=== PATIENT | male | born 1975 | race Caucasian/White ===

== ENCOUNTER 2016-12-09 01:16 | Emergency (ER) | payer MEDICAID ==
[~2016-12-09] VITALS: Ht 177.8 cm; Wt 173.0 kg
[~2016-12-09 01:16] MED LIST: AMLO-512 PO; SULF-168 PO
[2016-12-09 02:17] LABS: BASOPHILS # (AUTO) 0.05 K/uL (0.00-0.20); BASOPHILS % (AUTO) 0.3 % (0.0-2.0); EOSINOPHILS % (AUTO) 1.47 % (1.0-6.0); HEMATOCRIT 41.4 % (41-53); HEMOGLOBIN 13.5 g/dL (13.5-17.5); LYMPHOCYTES # (AUTO) 1.5 K/uL (1.0-4.8); MEAN CORPUSCULAR HEMOGLOBIN 27.5 pg (26.0-34.0); MEAN CORPUSCULAR HGB CONC 32.5 G/dL (31.0-37.0); MEAN CORPUSCULAR VOLUME 85 fL (80-100); MONOCYTES # (AUTO) 0.8 K/uL (0.1-1.0); MONOCYTES % (AUTO) 5.7 % (2.0-9.0); NEUTROPHILS # (AUTO) 11.1 K/uL (1.8-7.7); NEUTROPHILS % (AUTO) 81.5 % (40.0-70.0); PLATELET COUNT (AUTO) 425 K/uL (150-450); RED CELL DISTRIBUTION WIDTH 14.7 % (11.5-14.5); WHITE BLOOD COUNT (AUTO) 13.6 K/uL (4.5-11.0)
[2016-12-09 02:28] LABS: CALCIUM, TOTAL 8.4 mg/dL (8.8-10.5); CREATININE 1.43 mg/dL (0.60-1.30); POTASSIUM 3.9 mmol/L (3.5-5.1)
[2016-12-09 02:34] LABS: ALBUMIN 2.6 g/dL (3.4-5.0); BILIRUBIN,TOTAL 0.3 mg/dL (0.1-1.0)
[2016-12-09] MEDS ORDERED: HYDROmorphone 2 MG/ML SYRINGE IVP ONE (02:45)
[2016-12-09] MEDS ORDERED: ONDANSETRON HCL 4 MG/2 ML VIAL IVP ONE (02:45)
[2016-12-09] MEDS ORDERED: CEFTAROLINE 600 MG/D5W 250 ML IV ONE (02:45)
[2016-12-09] MEDS ORDERED: FUROSEMIDE 20 MG/2 ML VIAL IVP ONE (03:15)
[2016-12-09] MEDS ORDERED: FUROSEMIDE 40 MG/4 ML VIAL IVP ONE (03:15)
[2016-12-09 04:12] VITALS: BP 139/70
== END 2016-12-09 04:23 | disposition home or self-care (01) ==
LOC: EMS 01:17
DX: L03.114 Cellulitis of left upper limb (principal); R60.0 Localized edema; F17.210 Nicotine dependence, cigarettes, uncomplicated
CPT/HCPCS: 36415; 73130; 80053; 85025; 87040; 96365; 96375; 99285; 99406; J0712; J1170; J1940; J2405

== ENCOUNTER 2017-01-04 20:25 | Inpatient (IN) | payer MEDICAID ==
[~2017-01-04] VITALS: Ht 177.8 cm; Wt 187.1 kg
[~2017-01-04 20:25] MED LIST changes: -SULF-168 PO
[2017-01-04 21:16] LABS: BASOPHILS % (AUTO) 0.3 % (0.0-2.0); EOSINOPHILS % (AUTO) 2.4 % (1.0-6.0); HEMATOCRIT 40.6 % (41-53); LYMPHOCYTES # (AUTO) 1.2 K/uL (1.0-4.8); LYMPHOCYTES % (AUTO) 11.3 % (22.0-44.0); MEAN CORPUSCULAR VOLUME 84 fL (80-100); MONOCYTES # (AUTO) 0.9 K/uL (0.1-1.0); MONOCYTES % (AUTO) 8.5 % (2.0-9.0); NEUTROPHILS # (AUTO) 8.4 K/uL (1.8-7.7); NEUTROPHILS % (AUTO) 77.5 % (40.0-70.0); PLATELET COUNT (AUTO) 364 K/uL (150-450); RED BLOOD CELL COUNT(AUTO) 4.81 MIL/uL (4.50-5.90); RED CELL DISTRIBUTION WIDTH 15.4 % (11.5-14.5); WHITE BLOOD COUNT (AUTO) 10.9 K/uL (4.5-11.0)
[2017-01-04 21:29] LABS: ANION GAP 5 mmol/L (8-16); CALCIUM, TOTAL 7.8 mg/dL (8.8-10.5); CARBON DIOXIDE 32 mmol/L (22-29); CHLORIDE 99 mmol/L (98-107); GLOMERULAR FILTR. RATE CALC > 60 mL/min (>60); INR 1.1 (0.9-1.1); POTASSIUM 4.1 mmol/L (3.5-5.1); PROTHROMBIN TIME 11.4 SEC (9.4-11.6); SODIUM SERUM 136 mmol/L (136-145); UREA NITROGEN, BLOOD 13 mg/dL (7-18)
[2017-01-04 21:45] LABS: B-TYPE NATRIURETIC PEPTIDE 21 pg/mL (0-100)
[2017-01-04 21:58] LABS: ALANINE AMINOTRANSFERASE 20 U/L (12-78); ALBUMIN 2.5 g/dL (3.4-5.0); ASPARTATE AMINOTRANSFERASE 19 U/L (15-37); BILIRUBIN,TOTAL 0.3 mg/dL (0.1-1.0); CREATINE KINASE MB 2.2 ng/mL (0-5); CREATINE KINASE, TOTAL 169 U/L (39-308); TOTAL PROTEIN, SERUM 9.3 g/dL (6.4-8.2)
[2017-01-04] MEDS ORDERED: CEFTAROLINE 600 MG/D5W 250 ML IV ONE (22:15)
[2017-01-04] MEDS ORDERED: FUROSEMIDE 40 MG/4 ML VIAL IVP ONE (22:15)
[2017-01-04] MEDS ORDERED: ONDANSETRON HCL 4 MG/2 ML VIAL IVP ONE (22:15)
[2017-01-04] MEDS ORDERED: HYDROmorphone 2 MG/ML SYRINGE IVP ONE (22:15)
[2017-01-04] MEDS ORDERED: 0.9% SODIUM CHLORIDE 10 ML SYRINGE IVP PRN (22:45)
[2017-01-04] MEDS ORDERED: ACETAMINOPHEN 325 MG TABLET PO PRN ×2 (22:45→23:30)
[2017-01-04] MEDS ORDERED: ONDANSETRON HCL 4 MG/2 ML VIAL IVP PRN ×2 (22:45→23:30)
[2017-01-04] MEDS ORDERED: HYDROmorphone 2 MG/ML SYRINGE IVP PRN (23:30)
[2017-01-04] MEDS ORDERED: ALBUTEROL SULFATE 2.5 MG/0.5 ML NEB SOLUTION NEB PRN (23:30)
[2017-01-04] MEDS ORDERED: ZOLPIDEM TARTRATE 5 MG TABLET PO PRN (23:30)
[2017-01-04] MEDS ORDERED: OxyCODONE HCL/ACETAMINOPHEN 5-325 MG TABLET PO PRN (23:30)
[2017-01-04] MEDS ORDERED: MAGNESIUM HYDROXIDE SUSPENSION 30 ML UDCUP PO PRN (23:30)
[2017-01-04] MEDS ORDERED: BISACODYL 10 MG RECTAL RECTAL SUPPOSITORY PR PRN (23:30)
[2017-01-04] MEDS ORDERED: IPRATROPIUM BROMIDE 0.5 MG/2.5 ML NEB SOLUTION NEB PRN (23:30)
[2017-01-05] VITALS (8 sets, daily range): BP systolic 123–182; BP diastolic 63–101
[2017-01-05] MEDS ORDERED: CloNIDine HCL 0.1 MG TABLET PO PRN (05:30)
[2017-01-05 06:07] LABS: BASOPHILS % (AUTO) 0.4 % (0.0-2.0); EOSINOPHILS % (AUTO) 3.3 % (1.0-6.0); HEMATOCRIT 38.8 % (41-53); HEMOGLOBIN 12.5 g/dL (13.5-17.5); LYMPHOCYTES # (AUTO) 1.3 K/uL (1.0-4.8); LYMPHOCYTES % (AUTO) 11.9 % (22.0-44.0); MEAN CORPUSCULAR HEMOGLOBIN 26.9 pg (26.0-34.0); MEAN CORPUSCULAR HGB CONC 32.1 G/dL (31.0-37.0); MEAN CORPUSCULAR VOLUME 84 fL (80-100); MONOCYTES # (AUTO) 1.2 K/uL (0.1-1.0); MONOCYTES % (AUTO) 10.4 % (2.0-9.0); NEUTROPHILS # (AUTO) 8.3 K/uL (1.8-7.7); PLATELET COUNT (AUTO) 349 K/uL (150-450); RED BLOOD CELL COUNT(AUTO) 4.63 MIL/uL (4.50-5.90); WHITE BLOOD COUNT (AUTO) 11.2 K/uL (4.5-11.0)
[2017-01-05 07:26] LABS: ALANINE AMINOTRANSFERASE 18 U/L (12-78); ALBUMIN 2.4 g/dL (3.4-5.0); ANION GAP 6 mmol/L (8-16); ASPARTATE AMINOTRANSFERASE 18 U/L (15-37); BILIRUBIN,TOTAL 0.4 mg/dL (0.1-1.0); CALCIUM, TOTAL 7.7 mg/dL (8.8-10.5); CARBON DIOXIDE 31 mmol/L (22-29); CHLORIDE 99 mmol/L (98-107); CREATININE 1.11 mg/dL (0.60-1.30); GLOMERULAR FILTR. RATE CALC > 60 mL/min (>60); PHOSPHORUS 4.8 mg/dL (2.5-4.9); POTASSIUM 3.7 mmol/L (3.5-5.1); SODIUM SERUM 136 mmol/L (136-145); TOTAL PROTEIN, SERUM 8.6 g/dL (6.4-8.2); UREA NITROGEN, BLOOD 12 mg/dL (7-18)
[2017-01-05] MEDS: AmLODIPine BESYLATE 10 MG TABLET PO SCH (08:55)
[2017-01-05] MEDS: HEPARIN SODIUM,PORCINE 5,000 UNITS/ML VIAL SQ SCH (08:55)
[2017-01-05] MEDS: PANTOPRAZOLE SODIUM 40 MG DR TABLET PO SCH (08:55)
[2017-01-05] MEDS ORDERED: FUROSEMIDE 40 MG/4 ML VIAL IVP SCH (09:00)
[2017-01-05] MEDS ORDERED: CEFTAROLINE 600 MG/D5W 250 ML IV SCH (11:00)
[2017-01-05] MEDS ORDERED: SODIUM CHLORIDE 0.9% 500 ML IV ONE (11:24)
[2017-01-05 14:03] LABS: APPEARANCE,URINE CLEAR (CLEAR); GLUCOSE, URINE (UA) NEGATIVE (NEGATIVE); KETONES,URINE NEGATIVE (NEGATIVE); LEUKOCYTE ESTERASE ,URINE NEGATIVE (NEGATIVE); OCCULT BLOOD,URINE LARGE (NEGATIVE); PH,URINE 5.5 (5.0-8.0); PROTEIN,URINE NEGATIVE (NEGATIVE)
[2017-01-05 14:04] LABS: ADD UA MICROSCOPIC YES
[2017-01-05 14:11] LABS: WBC,URINE 0-2 /HPF (0-5)
[2017-01-05] MEDS: VANCOMYCIN HCL 1 GM/D5% WATER 200 ML IV SCH ×2 (16:00→16:58)
[2017-01-06] MEDS: VANCOMYCIN HCL 1.5 GM in DEXTROSE 5%-WATER 250 ML IV SCH ×4 (00:43→23:46)
[2017-01-06] MEDS: HEPARIN SODIUM,PORCINE 5,000 UNITS/ML VIAL SQ SCH ×3 (00:46→20:19)
[2017-01-06 06:07] VITALS: BP 133/60
[2017-01-06 06:15] LABS: BASOPHILS % (AUTO) 0.2 % (0.0-2.0); EOSINOPHILS % (AUTO) 2.1 % (1.0-6.0); HEMATOCRIT 40.1 % (41-53); HEMOGLOBIN 12.9 g/dL (13.5-17.5); LYMPHOCYTES # (AUTO) 1.1 K/uL (1.0-4.8); LYMPHOCYTES % (AUTO) 10.3 % (22.0-44.0); MEAN CORPUSCULAR HEMOGLOBIN 27.2 pg (26.0-34.0); MEAN CORPUSCULAR HGB CONC 32.3 G/dL (31.0-37.0); MEAN CORPUSCULAR VOLUME 84 fL (80-100); MONOCYTES # (AUTO) 1.1 K/uL (0.1-1.0); MONOCYTES % (AUTO) 9.8 % (2.0-9.0); NEUTROPHILS # (AUTO) 8.4 K/uL (1.8-7.7); NEUTROPHILS % (AUTO) 77.6 % (40.0-70.0); PLATELET COUNT (AUTO) 401 K/uL (150-450); RED BLOOD CELL COUNT(AUTO) 4.75 MIL/uL (4.50-5.90); RED CELL DISTRIBUTION WIDTH 15.1 % (11.5-14.5); WHITE BLOOD COUNT (AUTO) 10.9 K/uL (4.5-11.0)
[2017-01-06 06:34] LABS: ANION GAP 5 mmol/L (8-16); CALCIUM, TOTAL 8.1 mg/dL (8.8-10.5); CARBON DIOXIDE 32 mmol/L (22-29); CHLORIDE 101 mmol/L (98-107); CREATININE 1.14 mg/dL (0.60-1.30); GLOMERULAR FILTR. RATE CALC > 60 mL/min (>60); POTASSIUM 3.9 mmol/L (3.5-5.1); SODIUM SERUM 138 mmol/L (136-145); UREA NITROGEN, BLOOD 11 mg/dL (7-18)
[2017-01-06] MEDS: PANTOPRAZOLE SODIUM 40 MG DR TABLET PO SCH (08:17)
[2017-01-06] MEDS: AmLODIPine BESYLATE 10 MG TABLET PO SCH (08:18)
[2017-01-06 08:23] VITALS: BP 116/68
[2017-01-06 11:45] VITALS: BP 131/69
[2017-01-06 15:45] VITALS: BP 135/88
[2017-01-06 19:31] VITALS: BP 131/77
[2017-01-07] VITALS (7 sets, daily range): BP systolic 111–138; BP diastolic 52–81
[2017-01-07 06:28] LABS: ANION GAP 5 mmol/L (8-16); CALCIUM, TOTAL 8.1 mg/dL (8.8-10.5); CARBON DIOXIDE 33 mmol/L (22-29); CHLORIDE 99 mmol/L (98-107); CREATININE 1.15 mg/dL (0.60-1.30); GLOMERULAR FILTR. RATE CALC > 60 mL/min (>60); POTASSIUM 4.1 mmol/L (3.5-5.1); SODIUM SERUM 137 mmol/L (136-145); UREA NITROGEN, BLOOD 13 mg/dL (7-18)
[2017-01-07] MEDS: HEPARIN SODIUM,PORCINE 5,000 UNITS/ML VIAL SQ SCH ×2 (09:00→20:00)
[2017-01-07] MEDS: PANTOPRAZOLE SODIUM 40 MG DR TABLET PO SCH (09:35)
[2017-01-07] MEDS: AmLODIPine BESYLATE 10 MG TABLET PO SCH (09:35)
[2017-01-07] MEDS: VANCOMYCIN HCL 1.5 GM in DEXTROSE 5%-WATER 250 ML IV SCH ×3 (09:35→23:05)
[2017-01-08 04:43] VITALS: BP 124/63
[2017-01-08 06:07] LABS: ANION GAP 5 mmol/L (8-16); CALCIUM, TOTAL 7.9 mg/dL (8.8-10.5); CARBON DIOXIDE 33 mmol/L (22-29); CHLORIDE 98 mmol/L (98-107); CREATININE 1.16 mg/dL (0.60-1.30); GLOMERULAR FILTR. RATE CALC > 60 mL/min (>60); POTASSIUM 4.1 mmol/L (3.5-5.1); SODIUM SERUM 136 mmol/L (136-145); UREA NITROGEN, BLOOD 13 mg/dL (7-18)
[2017-01-08 07:25] VITALS: BP 144/125
[2017-01-08] MEDS: HEPARIN SODIUM,PORCINE 5,000 UNITS/ML VIAL SQ SCH (09:24)
[2017-01-08] MEDS: PANTOPRAZOLE SODIUM 40 MG DR TABLET PO SCH (09:24)
[2017-01-08] MEDS: AmLODIPine BESYLATE 10 MG TABLET PO SCH (09:24)
[2017-01-08] MEDS: VANCOMYCIN HCL 1.5 GM in DEXTROSE 5%-WATER 250 ML IV SCH ×2 (09:25→15:06)
[2017-01-08 11:25] VITALS: BP 134/83
[2017-01-08 15:51] VITALS: BP 129/80
[2017-01-08] MEDS ORDERED: DOXY100C PO (17:02)
== END 2017-01-08 17:50 | disposition home or self-care (01) | DRG 383 ==
LOC: EMS 20:29 → 6N 23:28
PROVIDERS: ADMIT Internal Medicine; ATTEND Internal Medicine
DX: L03.114 Cellulitis of left upper limb (principal); E44.0 Moderate protein-calorie malnutrition; L03.115 Cellulitis of right lower limb; Z68.43 Body mass index [BMI] 50.0-59.9, adult; E66.01 Morbid (severe) obesity due to excess calories; L03.116 Cellulitis of left lower limb; I10 Essential (primary) hypertension; J44.9 Chronic obstructive pulmonary disease, unspecified; G47.33 Obstructive sleep apnea (adult) (pediatric); M10.9 Gout, unspecified; M19.90 Unspecified osteoarthritis, unspecified site; F17.210 Nicotine dependence, cigarettes, uncomplicated; K59.00 Constipation, unspecified; G47.00 Insomnia, unspecified; Z79.899 Other long term (current) drug therapy; Z71.6 Tobacco abuse counseling
CPT/HCPCS: 83735; 84100; 87040; 87081; 93005; 93971; 94660; 96365; 96366; 96375; 99285; J0712; J1170; J1644; J1940; J2405; J3370; J7040; J7060

== ENCOUNTER 2018-12-31 19:12 | Emergency (ER) | payer MEDICAID, OTHER ==
[~2018-12-31] VITALS: Ht 177.8 cm; Wt 167.7 kg
[~2018-12-31 19:12] MED LIST changes: -AMLO-512 PO; +ASPI-1182 PO; +MULT-264 PO
[2018-12-31 19:48] LABS: GLUCOSE,POINT OF CARE 112 MG/DL (70-110)
[2018-12-31] MEDS ORDERED: CLON-570 PO (19:53)
[2018-12-31] MEDS ORDERED: FURO20 PO (19:56)
[2018-12-31] MEDS ORDERED: ALLO100T PO (19:56)
[2018-12-31] MEDS ORDERED: FAMO20 PO (19:56)
[2018-12-31] MEDS ORDERED: PHOSLOC PO (19:56)
[2018-12-31] MEDS ORDERED: METF-960 PO (19:56)
[2019-01-01] VITALS: BP 137/80
== END 2019-01-01 00:54 | disposition home or self-care (01) ==
LOC: EMS 19:14
DX: L03.115 Cellulitis of right lower limb (principal); L03.116 Cellulitis of left lower limb; E11.9 Type 2 diabetes mellitus without complications; F17.210 Nicotine dependence, cigarettes, uncomplicated; Z48.00 Encounter for change or removal of nonsurgical wound dressing; Z76.0 Encounter for issue of repeat prescription; Z79.84 Long term (current) use of oral hypoglycemic drugs; Z79.899 Other long term (current) drug therapy; Z79.82 Long term (current) use of aspirin

== ENCOUNTER 2019-02-21 20:24 | Emergency (ER) | payer OTHER ==
[~2019-02-21] VITALS: Ht 177.8 cm; Wt 163.6 kg
[~2019-02-21 20:24] MED LIST changes: +ALLO100T PO; +CLON-570 PO; +FAMO20 PO; +FURO20 PO; +METF-960 PO; -MULT-264 PO; +PHOSLOC PO
[2019-02-21 20:49] LABS: GLUCOSE,POINT OF CARE 66 MG/DL (70-110)
[2019-02-21 21:40] LABS: GLUCOSE,POINT OF CARE 112 MG/DL (70-110)
[2019-02-21 22:39] LABS: GLUCOSE,POINT OF CARE 90 MG/DL (70-110)
[2019-02-21 22:42] LABS: BASOPHILS % (AUTO) 0.6 % (0.0-2.0); EOSINOPHILS % (AUTO) 5.9 % (1.0-6.0); HEMATOCRIT 34.9 % (41-53); HEMOGLOBIN 11.6 g/dL (13.5-17.5); LYMPHOCYTES # (AUTO) 1.4 K/uL (1.0-4.8); LYMPHOCYTES % (AUTO) 18.4 % (22.0-44.0); MEAN CORPUSCULAR HGB CONC 33.3 G/dL (31.0-37.0); MEAN CORPUSCULAR VOLUME 81 fL (80-100); MONOCYTES # (AUTO) 0.6 K/uL (0.1-1.0); MONOCYTES % (AUTO) 8.1 % (2.0-9.0); NEUTROPHILS # (AUTO) 5.1 K/uL (1.8-7.7); PLATELET COUNT (AUTO) 358 K/uL (150-450); RED CELL DISTRIBUTION WIDTH 17.3 % (11.5-14.5)
[2019-02-21 22:55] LABS: ALBUMIN 2.7 g/dL (3.4-5.0); BILIRUBIN,TOTAL 0.3 mg/dL (0.1-1.0); CALCIUM, TOTAL 8.8 mg/dL (8.8-10.5); CREATININE 1.64 mg/dL (0.60-1.30); TOTAL PROTEIN, SERUM 9.4 g/dL (6.4-8.2)
[2019-02-21 22:57] LABS: POTASSIUM 2.9 mmol/L (3.5-5.1)
[2019-02-21] MEDS ORDERED: SODIUM CHLORIDE 0.9% 1,000 ML IV ONE (23:30)
[2019-02-21] MEDS ORDERED: POTASSIUM CHLORIDE 20 MEQ ER TABLET PO ONE (23:30)
[2019-02-22 00:50] LABS: GLUCOSE,POINT OF CARE 102 MG/DL (70-110)
[2019-02-22 01:24] VITALS: BP 141/89
== END 2019-02-22 01:48 | disposition home or self-care (01) ==
LOC: EMS 20:26
DX: E11.649 Type 2 diabetes mellitus with hypoglycemia without coma (principal); M19.90 Unspecified osteoarthritis, unspecified site; F17.210 Nicotine dependence, cigarettes, uncomplicated; Z79.84 Long term (current) use of oral hypoglycemic drugs; Z79.82 Long term (current) use of aspirin; Z79.899 Other long term (current) drug therapy

== ENCOUNTER → 2019-03-01 | Outpatient (CLI) | payer OTHER ==
[~2019-03-01] VITALS: Ht 177.8 cm; Wt 152.0 kg
[2019-03-01 09:44] VITALS: BP 122/92
== END | disposition home or self-care (01) ==
LOC: HBOWC 09:03
PROVIDERS: ATTEND Internal Medicine
DX: E11.622 Type 2 diabetes mellitus with other skin ulcer (principal); L97.812 Non-pressure chronic ulcer of other part of right lower leg with fat layer exposed; E11.65 Type 2 diabetes mellitus with hyperglycemia; M19.90 Unspecified osteoarthritis, unspecified site; F17.210 Nicotine dependence, cigarettes, uncomplicated; Z79.82 Long term (current) use of aspirin
CPT/HCPCS: 11042; 11045

== ENCOUNTER → 2019-03-08 | Outpatient (CLI) | payer OTHER ==
[~2019-03-08] MED LIST changes: -ASPI-1182 PO; -CLON-570 PO; -PHOSLOC PO
[2019-03-08 11:35] VITALS: BP 141/91
== END | disposition home or self-care (01) ==
LOC: HBOWC 09:50
PROVIDERS: ATTEND Internal Medicine
DX: E11.622 Type 2 diabetes mellitus with other skin ulcer (principal); L97.812 Non-pressure chronic ulcer of other part of right lower leg with fat layer exposed; E11.65 Type 2 diabetes mellitus with hyperglycemia; M19.90 Unspecified osteoarthritis, unspecified site; F17.210 Nicotine dependence, cigarettes, uncomplicated; Z79.82 Long term (current) use of aspirin
CPT/HCPCS: 11042

== ENCOUNTER → 2019-03-29 | Outpatient (CLI) | payer OTHER ==
[2019-03-29 11:20] VITALS: BP 110/88
== END | disposition home or self-care (01) ==
LOC: MSR 09:40
PROVIDERS: ATTEND Internal Medicine
DX: E11.622 Type 2 diabetes mellitus with other skin ulcer (principal); L97.818 Non-pressure chronic ulcer of other part of right lower leg with other specified severity; E11.65 Type 2 diabetes mellitus with hyperglycemia; M19.90 Unspecified osteoarthritis, unspecified site; F17.210 Nicotine dependence, cigarettes, uncomplicated; Z79.82 Long term (current) use of aspirin
CPT/HCPCS: 11042

== ENCOUNTER → 2019-04-05 | Outpatient (CLI) | payer OTHER ==
[2019-04-05 12:14] VITALS: BP 123/64
== END | disposition home or self-care (01) ==
LOC: HBOWC 10:18
PROVIDERS: ATTEND Internal Medicine
DX: E11.622 Type 2 diabetes mellitus with other skin ulcer (principal); I83.018 Varicose veins of right lower extremity with ulcer other part of lower leg; L97.812 Non-pressure chronic ulcer of other part of right lower leg with fat layer exposed; I83.892 Varicose veins of left lower extremity with other complications; I87.2 Venous insufficiency (chronic) (peripheral); I10 Essential (primary) hypertension; J44.9 Chronic obstructive pulmonary disease, unspecified; M19.90 Unspecified osteoarthritis, unspecified site; E66.01 Morbid (severe) obesity due to excess calories; G47.33 Obstructive sleep apnea (adult) (pediatric); F17.210 Nicotine dependence, cigarettes, uncomplicated; Z79.84 Long term (current) use of oral hypoglycemic drugs; Z79.82 Long term (current) use of aspirin
CPT/HCPCS: 11042

== ENCOUNTER → 2019-07-05 | Outpatient (CLI) | payer OTHER ==
[~2019-07-05] VITALS: Ht 177.8 cm; Wt 155.0 kg
[~2019-07-05] MED LIST changes: +FERR-89 PO; +INSNOV SQ; +LIDOCAINE 2% 5 ML JELLY TP ONE; +LISI-662 PO; +PHOSLOC PO; +SLOWK8 PO
[2019-07-05 10:00] VITALS: BP 154/118
[2019-07-05 10:30] VITALS: BP 145/106
== END | disposition home or self-care (01) ==
LOC: HBOWC 09:39
PROVIDERS: ATTEND Internal Medicine
DX: E11.622 Type 2 diabetes mellitus with other skin ulcer (principal); I83.018 Varicose veins of right lower extremity with ulcer other part of lower leg; L97.812 Non-pressure chronic ulcer of other part of right lower leg with fat layer exposed; I83.892 Varicose veins of left lower extremity with other complications; I10 Essential (primary) hypertension; J44.9 Chronic obstructive pulmonary disease, unspecified; M19.90 Unspecified osteoarthritis, unspecified site; E66.01 Morbid (severe) obesity due to excess calories; G47.33 Obstructive sleep apnea (adult) (pediatric); F17.210 Nicotine dependence, cigarettes, uncomplicated; Z79.84 Long term (current) use of oral hypoglycemic drugs; Z79.82 Long term (current) use of aspirin
CPT/HCPCS: 11042

== ENCOUNTER 2019-11-16 23:58 | Emergency (ER) | payer OTHER ==
[~2019-11-16] VITALS: Ht 170.2 cm; Wt 168.2 kg
[~2019-11-16 23:58] MED LIST changes: -LIDOCAINE 2% 5 ML JELLY TP ONE; -METF-960 PO
[2019-11-17 00:46] LABS: GLUCOSE,POINT OF CARE 132 MG/DL (70-110)
[2019-11-17] MEDS ORDERED: LIDOCAINE 1% 10 ML VIAL ONE (01:46)
[2019-11-17 02:30] VITALS: BP 148/88
== END 2019-11-17 02:30 | disposition home or self-care (01) ==
LOC: EMS 11-17 00:25
DX: L02.413 Cutaneous abscess of right upper limb (principal); L03.113 Cellulitis of right upper limb; E11.9 Type 2 diabetes mellitus without complications; E66.9 Obesity, unspecified; M19.90 Unspecified osteoarthritis, unspecified site; F17.210 Nicotine dependence, cigarettes, uncomplicated; Z98.890 Other specified postprocedural states; Z79.899 Other long term (current) drug therapy; Z68.43 Body mass index [BMI] 50.0-59.9, adult
CPT/HCPCS: 10060; 82962; 99283; J3490